=== PATIENT | male | born 1975 | race Caucasian/White ===

== ENCOUNTER 2017-05-19 16:29 | Emergency (ER) | payer OTHER ==
[~2017-05-19] VITALS: Ht 177.8 cm; Wt 79.4 kg
[~2017-05-19 16:29] MED LIST: CEPH500 PO; CRUTCH4 USE; HYDACE5 PO; Norco 5-325 Ta1 EACH PO; PROACE100 PO
[2017-05-19] MEDS ORDERED: Keflex500 MG PO (19:13)
== END 2017-05-19 19:19 | disposition home or self-care (01) ==
LOC: ER 16:29
DX: L03.113 Cellulitis of right upper limb (principal); F17.200 Nicotine dependence, unspecified, uncomplicated
CPT/HCPCS: 73130; 99283

== ENCOUNTER 2021-08-26 07:32 | Emergency (ER) | payer OTHER ==
[~2021-08-26] VITALS: Ht 177.8 cm; Wt 93.0 kg
[~2021-08-26 07:32] MED LIST changes: +(None)20 M1 PO; +ALBU90OI INH; +Cheratussin AC118 ML PO; +Keflex500 MG PO; +Zithromax250 MG PO
[2021-08-26] MEDS ORDERED: NEURONTIN300 MG PO (07:43)
== END 2021-08-26 10:39 | disposition home or self-care (01) ==
LOC: ER 07:32
DX: M25.562 Pain in left knee (principal); F17.210 Nicotine dependence, cigarettes, uncomplicated
CPT/HCPCS: 73562-LT

== ENCOUNTER 2021-11-19 07:14 | Emergency (ER) | payer OTHER ==
[~2021-11-19] VITALS: Ht 177.8 cm; Wt 95.2 kg
[~2021-11-19 07:14] MED LIST changes: +NEURONTIN300 MG PO
[2021-11-19] MEDS ORDERED: NEURONTIN300 MG PO (08:55)
[2021-11-19] MEDS ORDERED: AMOCLA875 PO (09:08)
== END 2021-11-19 09:51 | disposition home or self-care (01) ==
LOC: ER 07:14
DX: K11.20 Sialoadenitis, unspecified (principal); F17.210 Nicotine dependence, cigarettes, uncomplicated; Z88.0 Allergy status to penicillin
CPT/HCPCS: 99283

== ENCOUNTER 2022-01-25 06:40 | Day surgery (SDC) | payer OTHER ==
[~2022-01-25] VITALS: Ht 177.8 cm; Wt 92.3 kg
[~2022-01-25 06:40] MED LIST changes: +AMOCLA875 PO
[2022-01-25] MEDS ORDERED: ALBU90OI (07:07)
[2022-01-25] MEDS ORDERED: Voltaren100 GM (07:07)
== END 2022-01-25 09:09 | disposition home or self-care (01) ==
LOC: ORSCSDS 06:40
PROVIDERS: Student in an Organized Health Care Education/Training Program
PROC: 0DBL8ZX Excision of Transverse Colon, Via Natural or Artificial Opening Endoscopic, Diagnostic (ICD-10-PCS; principal; 2022-01-25 08:00)
PROC: 0DBN8ZX Excision of Sigmoid Colon, Via Natural or Artificial Opening Endoscopic, Diagnostic (ICD-10-PCS; principal; 2022-01-25 08:00)
PROC: 0DBP8ZX Excision of Rectum, Via Natural or Artificial Opening Endoscopic, Diagnostic (ICD-10-PCS; principal; 2022-01-25 08:00)
PROC: 0DBC8ZX Excision of Ileocecal Valve, Via Natural or Artificial Opening Endoscopic, Diagnostic (ICD-10-PCS; principal; 2022-01-25 08:00)
DX: K62.5 Hemorrhage of anus and rectum (principal); D12.3 Benign neoplasm of transverse colon; K62.1 Rectal polyp; K52.9 Noninfective gastroenteritis and colitis, unspecified; J44.9 Chronic obstructive pulmonary disease, unspecified; F17.210 Nicotine dependence, cigarettes, uncomplicated; Z79.899 Other long term (current) drug therapy
CPT/HCPCS: 88305; J2704; J7120

== ENCOUNTER 2023-04-15 09:49 | Emergency (ER) | payer OTHER ==
[~2023-04-15] VITALS: Ht 177.8 cm; Wt 79.4 kg
[~2023-04-15 09:49] MED LIST changes: +ALBU90OI; +Voltaren100 GM
[2023-04-15] MEDS ORDERED: CYCL10 PO (10:00)
[2023-04-15] MEDS ORDERED: OxyCODONE 7.5 mg/Acetam 325 mg TABLET PO ONE (10:15)
[2023-04-15] MEDS ORDERED: OXYACE7.5T PO (11:18)
[2023-04-15] MEDS ORDERED: DOC250 PO (11:18)
[2023-04-15 12:05] VITALS: BP 107/81
== END 2023-04-15 12:06 | disposition home or self-care (01) ==
LOC: ER 09:49
DX: M16.12 Unilateral primary osteoarthritis, left hip (principal); F17.210 Nicotine dependence, cigarettes, uncomplicated; Z79.899 Other long term (current) drug therapy
CPT/HCPCS: 73502; 99283-25; A9270

== ENCOUNTER 2023-12-05 06:04 | Day surgery (SDC) | payer OTHER ==
[~2023-12-05] VITALS: Ht 177.8 cm; Wt 94.1 kg
[~2023-12-05 06:04] MED LIST changes: +CYCL10 PO; +DOC250 PO; +Lactated Ringer's 1,000 ML IV ONE; +OXYACE7.5T PO
[2023-12-05] MEDS ORDERED: IBUP200 (06:43)
[2023-12-05] MEDS ORDERED: ALBUTEROL HFA 90MCG (06:44)
[2023-12-05] MEDS ORDERED: Midazolam HCl 1MG / ML 2ML Vial ONE (06:47)
[2023-12-05] MEDS ORDERED: propofoL 60 ML IV ONE (06:47)
[2023-12-05] MEDS ORDERED: FentaNYL Citrate 50 MCG/ML 2 ML Injection ONE (06:47)
[2023-12-05] MEDS ORDERED: Lactated Ringer's 1,000 ML IV ONE ×2 (07:02→09:16)
[2023-12-05] MEDS ORDERED: CeFAZolin Sodium 2,000 MG VIAL ONE (07:14)
[2023-12-05] MEDS ORDERED: NS 0 ML IV ONE (07:15)
--- NOTE | 2023-12-05 07:15 | NUR ---
12/05/23 0715 Ramila Javier 1 MG EPI ADDED TO FIRST BAG OF LR FOR IRREGATION.
[2023-12-05] MEDS ORDERED: CefTRIAXone Sodium 2,000 MG in NS 100 ML IV SCH ×2 (07:35→09:00)
--- NOTE | 2023-12-05 07:50 | NUR ---
12[facility]05[facility]23 [facility] DR MURDOCK NOTIFIED THAT PATIENT LAST TOOK IBUPROFEN 3 DAYS AGO, NO NEW ORDERS. TIMEOUT FOR BLOCK PROCEDURE: 730 INJECTION FOR BLOCK: [address] SCHUMACHER: 1412 1140: PATIENT ATTEMPTED TO REMOVE TOP DENTURE FOR PROCEDURE, BUT IS UNABLE, HE STATED IT IS "GLUED IN".
[2023-12-05] MEDS ORDERED: propofoL 20 ML IV ONE (08:53)
[2023-12-05 10:24] VITALS: BP 121/88
--- NOTE | 2023-12-05 10:37 | NUR ---
12/05/23 Yoana Ramos REPORT GIVEN BACK TO NURSE JAVIER. RN ASSISTED PT TO DRESS AND DEMONSTRATED HOW TO TAKE THE SLING ON AND OFF AND ADJUST IT. PT CONTINUES TO DENY NAUSEA AND PAIN. VSS. IV DC'D. PT READY FOR DISCHARGE INSTRUCTIONS.
== END 2023-12-05 11:10 | disposition home or self-care (01) ==
LOC: ORSCSDS 06:04
PROVIDERS: Orthopaedic Surgery
PROC: 0RNJ4ZZ Release Right Shoulder Joint, Percutaneous Endoscopic Approach (ICD-10-PCS; principal; 2023-12-05 07:30)
PROC: 0LM14ZZ Reattachment of Right Shoulder Tendon, Percutaneous Endoscopic Approach (ICD-10-PCS; principal; 2023-12-05 07:30)
DX: M75.121 Complete rotator cuff tear or rupture of right shoulder, not specified as traumatic (principal); M75.41 Impingement syndrome of right shoulder; Z87.891 Personal history of nicotine dependence; J44.89 Other specified chronic obstructive pulmonary disease; G47.33 Obstructive sleep apnea (adult) (pediatric); G62.9 Polyneuropathy, unspecified; Z79.899 Other long term (current) drug therapy
CPT/HCPCS: C1713; J0690; J0696; J2250; J2704; J3010; J7120

== ENCOUNTER 2025-01-31 07:58 | Day surgery (SDC) | payer SELFPAY ==
[~2025-01-31] VITALS: Ht 177.8 cm; Wt 95.7 kg
[~2025-01-31 07:58] MED LIST changes: +ALBUTEROL HFA 90MCG; +IBUP200; -Lactated Ringer's 1,000 ML IV ONE
[2025-01-31] MEDS ORDERED: VOLTAREN ARTHRI20 GM (08:28)
[2025-01-31 10:38] VITALS: BP 126/74
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
== END 2025-01-31 10:15 | disposition home or self-care (01) ==
LOC: ORSCSDS 07:58
PROVIDERS: Internal Medicine Gastroenterology
PROC: 0DBM8ZX Excision of Descending Colon, Via Natural or Artificial Opening Endoscopic, Diagnostic (ICD-10-PCS; principal; 2025-01-31 09:30)
DX: Z12.11 Encounter for screening for malignant neoplasm of colon (principal); Z86.0100 Personal history of colon polyps, unspecified; D12.4 Benign neoplasm of descending colon; K64.4 Residual hemorrhoidal skin tags; G47.33 Obstructive sleep apnea (adult) (pediatric); J44.89 Other specified chronic obstructive pulmonary disease; F17.210 Nicotine dependence, cigarettes, uncomplicated; Z86.16 Personal history of COVID-19; G62.9 Polyneuropathy, unspecified; E66.9 Obesity, unspecified; Z68.30 Body mass index [BMI] 30.0-30.9, adult; Z79.899 Other long term (current) drug therapy
CPT/HCPCS: 88305; J2704; J7120